=== PATIENT | male | born 1980 | race African-American/Black ===

== ENCOUNTER 2016-03-23 09:08 | Emergency (ER) | payer OTHER ==
[~2016-03-23] VITALS: Ht 175.3 cm; Wt 109.7 kg
[~2016-03-23 09:08] MED LIST: AMLODIPINE BESYL5 MG PO; ASPIR 8181 M1 PO; CIPRO500 MG PO; CLARITIN10 MG PO; FLAGYL500 MG PO; FLONASE16 G1 BOTH NARES; IBUPROFEN600 MG PO; LOPRESSOR25 MG PO; LOPRESSOR50 MG PO; MECLIZINE HCL25 MG PO; METAXALONE800 MG PO; MOTRIN800 MG PO; NO MEDS; NOHOMEMEDS; NORCO 5/3251 TABLET PO; PERCOCET 5/31 TABLET PO; PHENERGAN25 MG PR; PREDNISONE20 MG PO; PRILOSEC20 MG PO; PROMETHAZINE HC25 M1 PO; ROBITUSSIN AC,T10 ML PO; TRAMADOL HCL50 MG PO; VALIUM10 MG PO; VICODIN,LORT1 TABLET PO; ZANTAC300 MG PO; ZOFRAN ODT4 MG PO; ZOFRAN4 MG PO; ZYRTEC10 M3 PO
[2016-03-23] MEDS ORDERED: PAROXETINE HCL20 MG PO (09:43)
[2016-03-23] MEDS ORDERED: CLONAZEPAM0.5 MG PO (09:43)
[2016-03-23] MEDS ORDERED: NAPROXEN500 MG PO (09:59)
[2016-03-23 10:27] VITALS: BP 137/94
== END 2016-03-23 10:28 | disposition home or self-care (01) ==
LOC: EME 09:08
DX: S93.401A Sprain of unspecified ligament of right ankle, initial encounter (principal); W10.1XXA Fall (on)(from) sidewalk curb, initial encounter; I10 Essential (primary) hypertension
CPT/HCPCS: 73610; 99281; 99284

== ENCOUNTER 2016-10-10 01:36 | Emergency (ER) | payer OTHER ==
[~2016-10-10] VITALS: Ht 175.3 cm; Wt 109.5 kg
[~2016-10-10 01:36] MED LIST changes: +CLONAZEPAM0.5 MG PO; +NAPROXEN500 MG PO; +PAROXETINE HCL20 MG PO
[2016-10-10 03:08] LABS: HEMATOCRIT 40.7 % (38.0-50.0); MCH 28.5 PG (29.0-34.0); MCHC 33.4 G/DL (30.0-36.0); MCV 85.1 FL (86-99); MEAN PLAT.VOLUME 9.8 uM^3 (9.0-12.4); PLATELET COUNT 255 K/uL (156-360); RBC DIS.WIDTH-CV 13.6 % (11.8-14.6); RBC DIS.WIDTH-SD 42.6 % (39-53); RED BLOOD COUNT 4.78 M/uL (4.00-5.50); WHITE BLOOD COUNT 7.6 K/uL (4.1-10.2)
[2016-10-10 03:15] LABS: D-DIMER ELISA < 150.00 ng/mLDDU (<230)
[2016-10-10 03:22] LABS: CHLORIDE 106 mEq/L (99-109); POTASSIUM 3.8 mEq/L (3.7-5.4); SODIUM 138 mEq/L (136-147)
[2016-10-10 03:24] LABS: GLUCOSE 82 mg/dL (70-99)
[2016-10-10 03:26] LABS: ANION GAP 6 MEQ/L (2-14)
[2016-10-10 03:28] LABS: GFR ESTIMATE (CALCULATED) > 59 mL/min/
[2016-10-10 03:29] LABS: UREA NITROGEN (BUN) 7 mg/dL (9-23)
[2016-10-10] MEDS ORDERED: NAPROSYN500 MG PO (04:21)
[2016-10-10] MEDS ORDERED: FLEXERIL10 MG PO (04:21)
[2016-10-10] MEDS ORDERED: VALIUM5 MG PO (04:22)
[2016-10-10 04:41] VITALS: BP 144/89
== END 2016-10-10 04:42 | disposition home or self-care (01) ==
LOC: EME 01:36
PROVIDERS: Emergency Medicine
DX: S29.012A Strain of muscle and tendon of back wall of thorax, initial encounter (principal); S39.012A Strain of muscle, fascia and tendon of lower back, initial encounter; R07.9 Chest pain, unspecified; R10.9 Unspecified abdominal pain; R73.03 Prediabetes; I10 Essential (primary) hypertension; F17.200 Nicotine dependence, unspecified, uncomplicated
CPT/HCPCS: 71020; 71250; 74176; 80048; 81003; 85027; 85379; 87086; 93005; 99281; 99284

== ENCOUNTER 2017-08-08 08:00 | Emergency (ER) | payer OTHER ==
[~2017-08-08] VITALS: Ht 175.3 cm; Wt 101.2 kg
[~2017-08-08 08:00] MED LIST changes: +FLEXERIL10 MG PO; +NAPROSYN500 MG PO; +VALIUM5 MG PO
[2017-08-08] MEDS ORDERED: PROVENTIL HFA6.7 GM IH (08:54)
[2017-08-08] MEDS ORDERED: PREDNISONE50 MG PO (08:54)
[2017-08-08] MEDS ORDERED: ZITHROMAX Z-PA250 MG PO (08:54)
[2017-08-08 09:17] VITALS: BP 135/82
== END 2017-08-08 09:20 | disposition home or self-care (01) ==
LOC: EME 08:00
DX: J20.9 Acute bronchitis, unspecified (principal); S10.96XA Insect bite of unspecified part of neck, initial encounter; W57.XXXA Bitten or stung by nonvenomous insect and other nonvenomous arthropods, initial encounter; M25.512 Pain in left shoulder; M79.602 Pain in left arm; I10 Essential (primary) hypertension; F17.210 Nicotine dependence, cigarettes, uncomplicated
CPT/HCPCS: 71046; 94640; 99281; 99284